=== PATIENT | female | born 1990 | race Caucasian/White ===

== ENCOUNTER 2022-05-07 17:41 | Emergency (ER) | payer OTHER ==
[2022-05-07 17:49] VITALS: BP 140/92; PULSE 87; RESP 16; TEMP 98.5; BMI 26.8
[2022-05-07] MEDS ORDERED: IBUPROFEN 400 MG TABLET (FP) PO ONE (18:41)
[2022-05-07] MEDS ORDERED: MAG HYDROX/AL HYDROX/SIMETH 30 ML UNIT-DOSE CUP PO ONE (18:48)
[2022-05-07] MEDS ORDERED: FAMOTIDINE 20 MG TABLET PO ONE (18:48)
[2022-05-07] MEDS ORDERED: ACETAMINOPHEN 1000 MG/100 ML BAG IVPB ONE (19:20)
[2022-05-07] MEDS ORDERED: FAMOTIDINE 20 MG TABLET ONE (20:01)
[2022-05-07] MEDS ORDERED: MAG HYDROX/AL HYDROX/SIMETH 30 ML UNIT-DOSE CUP ONE (20:02)
[2022-05-07] MEDS ORDERED: ACETAMINOPHEN INJECTION 100 ML IVPB ONE (20:02)
[2022-05-07 20:51] LABS: BASO % 0.2 % (0-2.0); EOS % 0.3 % (0-4.5); HEMATOCRIT 36.3 % (32.4-45.2); HEMOGLOBIN 11.6 GM/dL (10.7-15.3); LYMPH % 13.4 % (8-40); MCH 26.5 pg (25.7-33.7); MEAN CELL VOLUME 82.9 fl (80-96); MEAN PLT VOLUME 10.8 fl (7.5-11.1); MONO % 5.9 % (3.8-10.2); NEUT % 80.2 % (42.8-82.8); PLATELET COUNT 208 10^3/uL (134-434); RBC 4.38 M/mm3 (3.60-5.2); RDW 13.6 % (11.6-15.6); WHITE BLOOD COUNT 10.8 K/mm3 (4.0-10.0)
[2022-05-07 20:57] LABS: BLOOD UREA NITROGEN 6.3 mg/dL (7-18); CALCIUM 9.4 mg/dL (8.5-10.1)
[2022-05-07 20:58] LABS: ALBUMIN 4.1 g/dl (3.4-5.0)
[2022-05-07 21:00] LABS: CREATININE 0.7 mg/dL (0.55-1.3)
[2022-05-07 21:02] LABS: BILIRUBIN,TOTAL 0.4 mg/dL (0.2-1); TOT PROT 8.1 g/dl (6.4-8.2)
== END 2022-05-07 22:21 | disposition home or self-care (01) ==
LOC: JER 17:41
PROC: 3E033GC Introduction of Other Therapeutic Substance into Peripheral Vein, Percutaneous Approach (ICD-10-PCS; principal; 2022-05-07)
DX: R07.9 Chest pain, unspecified (principal); J18.8 Other pneumonia, unspecified organism
CPT/HCPCS: 0241U-QW; 36415; 71046-TC-FY; 80053; 84484; 85025; 85027; 85379; 93005; 93010; 99285-25